=== PATIENT | female | born 1995 | race African-American/Black ===

== ENCOUNTER 2024-12-14 13:33 | Emergency (ER) | payer OTHER ==
[~2024-12-14] VITALS: Ht 157.5 cm; Wt 90.1 kg
[2024-12-14 14:03] VITALS: O2SAT 97
[2024-12-14 15:15] VITALS: TEMP 36.9; O2SAT 98
[2024-12-14] MEDS: HYDROCODONE/ACETAMINOPHEN 7.5/325MG TABLET PO ONE (15:34)
[2024-12-14] MEDS: SODIUM CHLORIDE 0.9% 1,000 ML IV ONE (15:35)
[2024-12-14 17:13] VITALS: BP 133/50; PULSE 77; RESP 18
[2024-12-14] MEDS: MORPHINE SULFATE 2 MG/ML INJ (NOT FOR IM USE) IV ONE (17:13)
[2024-12-14 17:31] LABS: BASOPHILS % 0.2 % (0.0-2.0); EOSINOPHILS % 1.0 % (0.0-5.0); HEMATOCRIT. 34.4 % (36.0-48.0); HEMOGLOBIN. 11.5 g/dL (12.0-16.0); LYMPHOCYTES % 25.8 % (20.0-50.0); MEAN PLATELET VOLUME 9.4 fl (7.4-10.4); MONOCYTES % 5.4 % (2.0-8.0); NEUTROPHILS % 67.6 % (40.0-76.0); PLATELET 171 x1000/uL (130-400); RED BLOOD CELL COUNT 4.26 mill/uL (4.2-5.4); RED CELL DISTRIBUTION WIDTH 17.0 % (11.6-14.6)
[2024-12-14 17:49] LABS: HCG SCREEN NEGATIVE
[2024-12-14 17:57] LABS: CREATININE 0.8 mg/dL (0.6-1.0); UREA NITROGEN BLOOD 5 mg/dL (9-23)
[2024-12-14 18:09] LABS: SICKLE CELL SCREEN POSITIVE (NEGATIVE)
== END 2024-12-14 18:29 | disposition left against medical advice (07) ==
LOC: ER 13:33 → 6EST 18:03 → UNDOADMIN 18:03 → ER 18:29 → CANBEDREQ 18:31 → ENRESERV 20:48
DX: D57.1 Sickle-cell disease without crisis (principal)
CPT/HCPCS: 80048; 84703; 85660; 85025; 85044; 36415; 96361; 96374; 99291; J2270; Z7610; J7030